=== PATIENT | male | born 1950 | race Caucasian/White ===

== ENCOUNTER 2020-08-28 20:55 | Inpatient (IN) | payer MEDICARE, OTHER ==
[~2020-08-28] VITALS: Ht 175.3 cm; Wt 97.6 kg
[2020-08-29 02:31] LABS: HEMOGLOBIN 11.9 gm/dl (14.0-17.5); RED BLOOD COUNT 3.86 M/UL (4.20-5.50); WHITE BLOOD COUNT 10.7 K/UL (4.5-11.0)
[2020-08-29] MEDS ORDERED: ASPIRIN EC81 MG PO (06:57)
[2020-08-29] MEDS ORDERED: ATORVASTATIN CA80 MG PO (06:57)
[2020-08-29] MEDS ORDERED: LEVOTHYROXINE100 MC2 PO (06:58)
[2020-08-29] MEDS ORDERED: CELEXA20 MG PO (06:58)
[2020-08-29] MEDS ORDERED: COZAAR50 MG PO (06:58)
[2020-08-29] MEDS ORDERED: GLUCOPHAGE500 MG PO (06:59)
[2020-08-29] MEDS ORDERED: METOPROLOL SUCC25 MG PO (07:00)
[2020-08-29] MEDS ORDERED: NEURONTIN100 MG PO (07:01)
[2020-08-30 04:18] LABS: HEMOGLOBIN 11.2 gm/dl (14.0-17.5); RED BLOOD COUNT 3.68 M/UL (4.20-5.50)
--- NOTE | 2020-08-30 09:40 | NUR ---
DOCTOR CANDIDA HAS BEEN CALLED TWICE PERTAINING TO PATIENTS MED LIST FOR TRANSFER TO PCU WITH NO RESPONSE WILL MOVE PATIENT TO PCU AND PCU STAFF CAN CONTACT DOCTOR PERTAINING TO MEDICATIONS.
--- NOTE | 2020-08-30 13:24 | NUR ---
PATIENT WAS ORIGINALLY SCHEDULED FOR PROCEDURE WITH DR TIRADO. AFTER REVIEW OF ECHO, DOPLAR, AND ULTRA SOUND PATIENT HAD 90% OCLUSION IN RT COROTID ARTERY WHICH WOULD TAKE PRESIDENT. DR TIRADO ALSO REVIEWED PATIENTS EXTENSIVE CARDIAC HISTORY AND NEW ONSET OF AFLUTTER AND DECIDED PATIENT SHOULD BE MOVED TO PCU. DR TIRADO ALSO ORDERED A CONSULT WITH CARDIOLOGY AND A COURTESY CALL TO DR. CHAU FOR THE CONSULT. TRANSFER ORDER WAS PUT IN, MEDS GATHERED, CHART AND PATIENTS BELONGINGS WERE ALSO GATHERED AND PATIENT WAS MOVED TO PCU ROOM 6115.
[2020-08-31 05:08] LABS: HEMOGLOBIN 10.8 gm/dl (14.0-17.5); RED BLOOD COUNT 3.53 M/UL (4.20-5.50); WHITE BLOOD COUNT 9.6 K/UL (4.5-11.0)
[2020-09-01 02:23] LABS: HEMOGLOBIN 11.3 gm/dl (14.0-17.5); RED BLOOD COUNT 3.65 M/UL (4.20-5.50); WHITE BLOOD COUNT 10.6 K/UL (4.5-11.0)
--- NOTE | 2020-09-01 10:31 | NUR ---
10:26 PT TRANSFERRED TO OR FOR CAROTID ENDOCARTERECTOMY PER OR STAFF, PT WILL BE GOING TO ICU FOLLOWING SURGERY
[2020-09-02 05:03] LABS: HEMOGLOBIN 9.7 gm/dl (14.0-17.5); WHITE BLOOD COUNT 11.9 K/UL (4.5-11.0)
[2020-09-02 05:05] LABS: RED BLOOD COUNT 3.17 M/UL (4.20-5.50)
[2020-09-03 02:26] LABS: HEMOGLOBIN 9.4 gm/dl (14.0-17.5); RED BLOOD COUNT 3.13 M/UL (4.20-5.50); WHITE BLOOD COUNT 11.7 K/UL (4.5-11.0)
[2020-09-04 05:05] LABS: HEMOGLOBIN 10.6 gm/dl (14.0-17.5); WHITE BLOOD COUNT 10.7 K/UL (4.5-11.0)
[2020-09-04 05:06] LABS: RED BLOOD COUNT 3.46 M/UL (4.20-5.50)
[2020-09-04 05:22] LABS: BUN/CREATININE RATIO 18 (0-10)
[2020-09-05 03:16] LABS: HEMOGLOBIN 10.5 gm/dl (14.0-17.5); RED BLOOD COUNT 3.51 M/UL (4.20-5.50); WHITE BLOOD COUNT 9.6 K/UL (4.5-11.0)
[2020-09-05 04:07] LABS: BUN/CREATININE RATIO 17 (0-10)
[2020-09-06 02:09] LABS: RED BLOOD COUNT 3.36 M/UL (4.20-5.50); WHITE BLOOD COUNT 8.7 K/UL (4.5-11.0)
[2020-09-07 02:45] LABS: HEMOGLOBIN 10.3 gm/dl (14.0-17.5); RED BLOOD COUNT 3.46 M/UL (4.20-5.50); WHITE BLOOD COUNT 9.8 K/UL (4.5-11.0)
--- NOTE | 2020-09-07 06:22 | NUR ---
PT'S PERIPHERAL PULSES OF LOWER EXTREMITIES WERE CHECKED Q2HRS DURING THE NIGHT WITH POSITIVE PULSES FELT.
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
--- NOTE | 2020-09-07 20:00 | NUR ---
WAS NOTIFIED THAT RN'S DO NOT PLACE RHINO ROCKETS. HE STATED TO CALL ER MD TO SEE IF HE WOULD PLACE IT. DR. DUVALL CAME TO PLACE RHINO ROCKET BUT AFTER EXAMINING PT HE DECIDED THAT PT DID NOT NEED IT.
[2020-09-08 03:03] LABS: WHITE BLOOD COUNT 11.5 K/UL (4.5-11.0)
[2020-09-09 04:14] LABS: HEMOGLOBIN 8.9 gm/dl (14.0-17.5); RED BLOOD COUNT 2.96 M/UL (4.20-5.50); WHITE BLOOD COUNT 10.8 K/UL (4.5-11.0)
[2020-09-09 04:35] LABS: BUN/CREATININE RATIO 21 (0-10)
[2020-09-09] MEDS ORDERED: AMLODIPINE BESYL5 MG PO (12:56)
[2020-09-09] MEDS ORDERED: ZYVOX600 MG PO (12:56)
[2020-09-09] MEDS ORDERED: PROTONIX 40 MG40 M1 PO (12:56)
[2020-09-09] MEDS ORDERED: CLOPIDOGREL75 MG PO (12:56)
[2020-09-09] MEDS ORDERED: PERCOCET 5-3251 EACH PO (13:30)
[2020-09-09] MEDS ORDERED: POVIDONE-IOD28.35 GM TOP (13:53)
== END 2020-09-09 18:57 | disposition home health service (06) | DRG 271 ==
LOC: MED SURG 4 21:55 → PROG CARE 21:55 → CCU 21:55 → PROG CARE 08-30 08:35 → MED SURG 4 08-30 09:04 → PROG CARE 08-30 11:01 → CCU 09-01 11:55 → PROG CARE 09-02 20:57 → MED SURG 4 09-08 17:21
PROVIDERS: Internal Medicine; ADMIT Internal Medicine
PROC: 03CL0ZZ Extirpation of Matter from Left Internal Carotid Artery, Open Approach (ICD-10-PCS; principal; 2020-09-04)
PROC: 04CK3ZZ Extirpation of Matter from Right Femoral Artery, Percutaneous Approach (ICD-10-PCS; 2020-09-06)
PROC: 047K3Z1 Dilation of Right Femoral Artery using Drug-Coated Balloon, Percutaneous Approach (ICD-10-PCS; 2020-09-06)
PROC: B41F1ZZ Fluoroscopy of Right Lower Extremity Arteries using Low Osmolar Contrast (ICD-10-PCS; 2020-09-06)
PROC: 0Y6X0Z0 Detachment at Right 5th Toe, Complete, Open Approach (ICD-10-PCS; 2020-09-07)
PROC: 0JBQ0ZZ Excision of Right Foot Subcutaneous Tissue and Fascia, Open Approach (ICD-10-PCS; 2020-09-07)
DX: E11.52 Type 2 diabetes mellitus with diabetic peripheral angiopathy with gangrene (principal); N17.9 Acute kidney failure, unspecified; M86.8X8 Other osteomyelitis, other site; I96 Gangrene, not elsewhere classified; E87.1 Hypo-osmolality and hyponatremia; I42.9 Cardiomyopathy, unspecified; E11.628 Type 2 diabetes mellitus with other skin complications; I65.22 Occlusion and stenosis of left carotid artery; E78.5 Hyperlipidemia, unspecified; I25.10 Atherosclerotic heart disease of native coronary artery without angina pectoris; I10 Essential (primary) hypertension; E03.9 Hypothyroidism, unspecified; R04.0 Epistaxis; E66.9 Obesity, unspecified; E11.42 Type 2 diabetes mellitus with diabetic polyneuropathy; L03.031 Cellulitis of right toe; I12.9 Hypertensive chronic kidney disease with stage 1 through stage 4 chronic kidney disease, or unspecified chronic kidney disease; E11.22 Type 2 diabetes mellitus with diabetic chronic kidney disease; N18.30 Chronic kidney disease, stage 3 unspecified; I44.0 Atrioventricular block, first degree; Z20.822 Contact with and (suspected) exposure to COVID-19; E11.319 Type 2 diabetes mellitus with unspecified diabetic retinopathy without macular edema; E11.40 Type 2 diabetes mellitus with diabetic neuropathy, unspecified; D63.8 Anemia in other chronic diseases classified elsewhere; E05.90 Thyrotoxicosis, unspecified without thyrotoxic crisis or storm; Z96.612 Presence of left artificial shoulder joint; E11.65 Type 2 diabetes mellitus with hyperglycemia; E11.21 Type 2 diabetes mellitus with diabetic nephropathy; Z95.1 Presence of aortocoronary bypass graft; Z83.3 Family history of diabetes mellitus; Z68.30 Body mass index [BMI] 30.0-30.9, adult; Z42.8 Encounter for other plastic and reconstructive surgery following medical procedure or healed injury; Z72.0 Tobacco use; Z79.4 Long term (current) use of insulin
CPT/HCPCS: ECHO; 36415; 70498; 71045; 75630; 80048; 80053; 80202; 81001; 82140; 82436; 82550; 82553; 82570; 82652; 82728; 82962; 83036; 83540; 83550; 83605; 83735; 83880; 84100; 84133; 84156; 84300; 84439; 84443; 84484; 85025; 85027; 85652; 85730; 86140; 86850; 86900; 86901; 87040; 87070; 87077; 87186; 87205; 93005; 93306; 93880; 94760; 97161; C1714; C1725; C1769; C1887; C2623; C9113; J0360; J1580; J1644; J1650; J2001; J2185; J2270; J2370; J2405; J2704; J2710; J2720; J2795; J3010; J3370; J7030; J7040; J7050; J7070; J7120; Q9962; Q9965; U0002

== ENCOUNTER 2020-10-22 18:57 | Inpatient (IN) | payer MEDICARE ==
[~2020-10-22] VITALS: Ht 175.3 cm; Wt 100.0 kg
[~2020-10-22 18:57] MED LIST: AMLODIPINE BESYL5 MG PO; ASPIRIN EC81 MG PO; ATORVASTATIN CA80 MG PO; CELEXA20 MG PO; CLOPIDOGREL75 MG PO; COZAAR50 MG PO; GLUCOPHAGE500 MG PO; LEVOTHYROXINE100 MC2 PO; METOPROLOL SUCC25 MG PO; NEURONTIN100 MG PO; PERCOCET 5-3251 EACH PO; POVIDONE-IOD28.35 GM TOP; PROTONIX 40 MG40 M1 PO; ZYVOX600 MG PO
[2020-10-22 21:00] LABS: HEMOGLOBIN 7.5 gm/dl (14.0-17.5); RED BLOOD COUNT 2.61 M/UL (4.20-5.50); WHITE BLOOD COUNT 12.9 K/UL (4.5-11.0)
[2020-10-23 05:40] LABS: HEMOGLOBIN 7.5 gm/dl (14.0-17.5); RED BLOOD COUNT 2.64 M/UL (4.20-5.50); WHITE BLOOD COUNT 10.5 K/UL (4.5-11.0)
[2020-10-23 13:44] LABS: HEMOGLOBIN 8.8 gm/dl (14.0-17.5); WHITE BLOOD COUNT 10.1 K/UL (4.5-11.0)
[2020-10-23 13:46] LABS: RED BLOOD COUNT 3.09 M/UL (4.20-5.50)
--- NOTE | 2020-10-23 14:05 | NUR ---
CALLED OUTPATIENT PSYCHIATRIST TO SCHEDULE EGD [facility] FOR TOMORROW. 10/23/20.
--- NOTE | 2020-10-23 22:00 | NUR ---
c/o nausea. zofran 4mg iv administered.
--- NOTE | 2020-10-24 01:55 | NUR ---
PATIENT SLEEPING. 02 SATS DECREASING TO 81% . PATIENT AWAKENS EASILY. NO DISTRESS VOICED OR NOTED. TITRATING 02 TO KEEP SATS > 90%
[2020-10-24 05:06] LABS: HEMOGLOBIN 9.1 gm/dl (14.0-17.5); RED BLOOD COUNT 3.26 M/UL (4.20-5.50); WHITE BLOOD COUNT 11.6 K/UL (4.5-11.0)
[2020-10-25 03:18] LABS: HEMOGLOBIN 8.5 gm/dl (14.0-17.5); RED BLOOD COUNT 3.01 M/UL (4.20-5.50); WHITE BLOOD COUNT 10.1 K/UL (4.5-11.0)
[2020-10-25 03:50] LABS: BUN/CREATININE RATIO 18 (0-10)
[2020-10-26 03:15] LABS: HEMOGLOBIN 9.2 gm/dl (14.0-17.5); RED BLOOD COUNT 3.21 M/UL (4.20-5.50); WHITE BLOOD COUNT 10.3 K/UL (4.5-11.0)
[2020-10-27 03:04] LABS: HEMOGLOBIN 8.8 gm/dl (14.0-17.5); RED BLOOD COUNT 3.13 M/UL (4.20-5.50); WHITE BLOOD COUNT 9.2 K/UL (4.5-11.0)
[2020-10-27] MEDS ORDERED: FERROUS SULFAT325 M2 PO (11:34)
[2020-10-27] MEDS ORDERED: SODIUM BICARBO650 M1 PO (11:39)
== END 2020-10-27 15:22 | disposition home or self-care (01) | DRG 377 ==
LOC: PREOBSVTOIN 19:17 → CCU 19:36 → PROG CARE 19:36
PROVIDERS: Internal Medicine; Internal Medicine Infectious Disease; Internal Medicine Nephrology; ADMIT Internal Medicine
PROC: 30233N1 Transfusion of Nonautologous Red Blood Cells into Peripheral Vein, Percutaneous Approach (ICD-10-PCS; principal; 2020-10-22)
PROC: 30233N1 Transfusion of Nonautologous Red Blood Cells into Peripheral Vein, Percutaneous Approach (ICD-10-PCS; 2020-10-23)
DX: K92.2 Gastrointestinal hemorrhage, unspecified (principal); K72.00 Acute and subacute hepatic failure without coma; N17.0 Acute kidney failure with tubular necrosis; E87.2 Acidosis; I13.0 Hypertensive heart and chronic kidney disease with heart failure and stage 1 through stage 4 chronic kidney disease, or unspecified chronic kidney disease; I50.22 Chronic systolic (congestive) heart failure; D62 Acute posthemorrhagic anemia; I73.9 Peripheral vascular disease, unspecified; I25.5 Ischemic cardiomyopathy; I25.10 Atherosclerotic heart disease of native coronary artery without angina pectoris; Z95.1 Presence of aortocoronary bypass graft; E03.9 Hypothyroidism, unspecified; N18.32 Chronic kidney disease, stage 3b; Z90.5 Acquired absence of kidney; Z79.899 Other long term (current) drug therapy; Z79.82 Long term (current) use of aspirin; Z79.01 Long term (current) use of anticoagulants; E11.22 Type 2 diabetes mellitus with diabetic chronic kidney disease; Z95.820 Peripheral vascular angioplasty status with implants and grafts; Z85.528 Personal history of other malignant neoplasm of kidney; Z87.891 Personal history of nicotine dependence; E78.5 Hyperlipidemia, unspecified; Z89.421 Acquired absence of other right toe(s); Z96.612 Presence of left artificial shoulder joint; Z83.3 Family history of diabetes mellitus; R74.01 Elevation of levels of liver transaminase levels; I95.2 Hypotension due to drugs; T41.295A Adverse effect of other general anesthetics, initial encounter
CPT/HCPCS: 36415; 36430; 80048; 80053; 82728; 82803; 82962; 83540; 83550; 83735; 84100; 85025; 85610; 86850; 86900; 86901; 86920; 93005; 94640; 94664; 94760; C9113; J1756; J2250; J2270; J2405; J7030; J7040; P9016; P9047